=== PATIENT | female | born 1995 | race Caucasian/White ===

== ENCOUNTER 2017-10-01 10:51 | Emergency (ER) | payer BC ==
[2017-10-01 11:15] VITALS: RESP 16; TEMP 98.1
--- NOTE | 2017-10-01 12:04 | EDPHY ---
H & P Stated Complaint: n/v/d today working out devolped back pain Time Seen by Provider: 10/01/17 12:04 HPI/ROS: HPI: This is a 21-year-old female who presents with Chief Complaint: Urinary symptoms Location: Quality: Urinary since Duration: 1 and half weeks Signs and Symptoms: no fever, no nausea, no vomiting, no hematemesis, no blood in stool, no abdominal bloating, no diarrhea, + right lumbar back pain, + urinary symptoms, no vaginal discharge, no indigestion, no chest pain, no shortness of breath Timing: Worsening Severity: Mild Context: Last week and had burning with urination and hesitancy. Took azo for several days and symptoms went away. 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 Patient believes that she has a urinary tract infection. No history of pyelonephritis/kidney stone. Eating and drinking normally. Denies fever/ diarrhea. Currently on menses. Last sexual intercourse in January of 2017. Modifying Factors: Azo Comment: ROS: see HPI Constitutional: No fever, no chills, no weight loss Eyes: No blurred vision Respiratory: No shortness of breath, no cough Cardiovascular: No chest pain, no palpitations Gastrointestinal: No nausea, no vomiting, no diarrhea, no hematemesis, no blood in stool Genitourinary: No dysuria, no blood in urine Extremities: No myalgias, no edema Neurologic: No weakness, no numbness Skin: No rashes, no petechiae Hematologic: No bruising, no bleeding MEDICAL/SURGICAL/SOCIAL HISTORY: Medical history: Generally healthy. Does not take any regular medications. Surgical history: Denies Social history: Student. CONSTITUTIONAL: Extremely well-appearing teenage white female, awake and alert , no obvious distress HEENT: Atraumatic and normocephalic, PERRL, EOMI. Tympanic membranes clear. Oropharynx clear, no exudate and moist pink mucosa. Airway patent. No lymphadenopathy. No meningismus. Cardiovascular: Normal S1/S2, regular rate, regular rhythm, without murmur rub or gallop. PULMONARY/CHEST: Symmetrical and nontender. Clear to auscultation bilaterally. Good air movement. No accessory muscle usage. ABDOMEN: Soft, nondistended, nontender, no rebound, no guarding, no peritoneal signs, no masses or organomegaly. No CVAT. BACK: No midline tenderness, no paraspinous spasm, deep tendon reflexes 2/2, no pain with straight leg raise EXTREMITIES: 2/2 pulses, strength 5/5, no deformities, no clubbing, no cyanosis or edema. NEUROLOGICAL: no focal neuro deficits. GCS 15. SKIN: Warm and dry, no erythema. no rash. Good capillary refill. Source: Patient Exam Limitations: No limitations - Personal History LMP (Females 10-55): Now Current Tetanus/Diphtheria Vaccine: Unsure Tetanus Vaccine Date: < 10 years - Medical/Surgical History Hx Asthma: No Hx Chronic Respiratory Disease: No Hx Diabetes: No Hx Cardiac Disease: No Hx Renal Disease: No Hx Cirrhosis: No Hx Alcoholism: No Hx HIV/AIDS: No Hx Splenectomy or Spleen Trauma: No Other PMH: none reported - Social History Smoking Status: Current some day smoker Constitutional: Initial Vital Signs Temperature (C) 36.7 C 10/01/17 11:12 Heart Rate 60 10/01/17 11:12 Respiratory Rate 16 10/01/17 11:12 Blood Pressure 98/64 L 10/01/17 11:12 O2 Sat (%) 98 10/01/17 11:12 O2 Delivery Mode Room Air Allergies/Adverse Reactions: No Known Allergies Allergy (Unverified 07/03/16 14:50) Home Medications: Medication Instructions Recorded Mylan 10/01/17 Nitrofurantoin Monohyd/M-Cryst 100 mg PO BID #14 capsule 10/01/17 [Macrobid 100 mg Capsule] Medical Decision Making ED Course/Re-evaluation: Urinalysis shows abnormality; but not clear infection; sent for urine culture and start Macrobid Vital signs stable no systemic signs. Abdomen soft and nontender; doubt surgical abdomen. This patient was seen under the supervision of my secondary supervising physician. I evaluated care for this patient independently. Differential Diagnosis: Back pain including but not limited to muscular pain, herniated disc, spine fracture, intra-abdominal causes and urinary tract infection. - Data Points Laboratory Results: 10/01/17 12:03 Urine Color BRIDGET Urine Appearance HAZY Urine pH 8.0 H (5.0-7.5) Ur Specific [place] 1.023 (1.002-1.030) Urine Protein 1+ H (NEGATIVE) Urine Ketones NEGATIVE (NEGATIVE) Urine Blood 3+ H (NEGATIVE) Urine Nitrate NEGATIVE (NEGATIVE) Urine Bilirubin NEGATIVE (NEGATIVE) Urine Urobilinogen NEGATIVE EU EU (0.2-1.0) Ur Leukocyte Esterase NEGATIVE (NEGATIVE) Urine RBC 50-182 /hpf H /hpf (0-3) Urine WBC 5-10 /hpf H /hpf (0-3) Ur Epithelial Cells TRACE /lpf /lpf (NONE-1+) Urine Mucus 4+ /lpf H /lpf (NONE-1+) Urine Glucose NEGATIVE (NEGATIVE) Medications Given: Discontinued Medications Ondansetron HCl (Zofran Odt) 4 mg PO EDNOW ONE Stop: 10/01/17 12:10 Last Admin: 10/01/17 12:15 Dose: 4 mg Departure - Departure Disposition: Home, Routine, Self-Care Clinical Impression: Dysuria Condition: Good Instructions: Urinary Tract Infection in Women (ED) Additional Instructions: Consume a minimum of 8-10 glasses of water or electrolyte fluid replacement drinks that include Gatorade, Powerade, Pedialyte. Eat a bland diet for the next 48 hours and then slowly advance as tolerated. Take all of the Macrobid as directed until complete. Return to the Emergency Room if symptoms do not resolve in the next 48-72 hours , you spike a fever > 102 F, or experience intractable abdominal pain/nausea/ vomiting. Referrals: [facility],. [Clinic] - As per Instructions Prescriptions: Nitrofurantoin Monohyd/M-Cryst [Macrobid 100 mg Capsule] 100 mg PO BID #14 capsule
[2017-10-01] MEDS ORDERED: ONDANSETRON DISINTEGRATING 4 MG TAB PO ONE (12:09)
[2017-10-01 13:03] VITALS: BP 102/57; PULSE 63; O2SAT 97
== END 2017-10-01 13:03 | disposition home or self-care (01) ==
DX: R30.0 Dysuria (principal); F17.200 Nicotine dependence, unspecified, uncomplicated

== ENCOUNTER 2017-10-10 07:52 | Emergency (ER) | payer BC ==
[2017-10-10] MEDS ORDERED: ONDANSETRON 4 MG/2 ML VIAL IVP ONE (08:18)
--- NOTE | 2017-10-10 08:25 | EDPHY ---
H & P Time Seen by Provider: 10/10/17 08:09 HPI/ROS: CHIEF COMPLAINT: Right-sided abdominal pain, vomiting HISTORY OF PRESENT ILLNESS: 21-year-old female presents with right lower quadrant pain and vomiting. She was seen in this emergency department 1 week ago for similar symptoms. Urinalysis revealed red blood cells only, thought secondary to menstruation. She was placed on Macrobid for possible urinary tract infection. The pain resolved, but returned this morning. She was awakened by severe right-sided abdominal pain that radiates to her back. Associated with multiple episodes of vomiting. The pain waxes and wanes and continues to be severe. No prior history of kidney stone or ovarian cyst. Last menstrual period 2 weeks ago and regular. No fever or prior abd surgery. REVIEW OF SYSTEMS: Constitutional: No fever, no chills Eyes: No visual changes ENT: No sore throat Respiratory: No cough, no shortness of breath Cardiac: No chest pain Genitourinary: No hematuria, no dysuria Musculoskeletal: No leg pain or swelling Skin: No rash Neurological: No headache, no weakness Psychiatric: No depression Past Medical/Surgical History: Denies Social History: Student at [employer] Smoking Status: Former smoker Physical Exam: General Appearance: Alert, pleasant, appears in pain Eyes: Pupils equal and round, no conjunctival pallor or injection ENT, Mouth: Mucous membranes moist Neck: Normal inspection Respiratory: Lungs are clear to auscultation Cardiovascular: Regular rate and rhythm Gastrointestinal: Abdomen is soft, right lower quadrant tenderness, no peritoneal signs Neurological: A&O, nonfocal, normal gait Skin: Warm and dry Extremities: Normal inspection Psychiatric: Mood and affect normal Constitutional: Initial Vital Signs Temperature (C) 36.6 C 10/10/17 07:53 Heart Rate 92 10/10/17 07:53 Respiratory Rate 24 H 10/10/17 07:53 Blood Pressure 112/95 H 10/10/17 07:53 O2 Sat (%) 100 10/10/17 07:53 O2 Delivery Mode Room Air Allergies/Adverse Reactions: morphine Allergy (Verified 10/10/17 12:33) Home Medications: Medication Instructions Recorded Mylan 10/01/17 Medical Decision Making - Diagnostics Imaging Results: Abd/pelvic sono: appendicolith present ED Course/Re-evaluation: This patient presents with severe right lower quadrant pain, radiating to the back. Right lower quadrant tenderness on exam. Stat test ordered to rule out ectopic . IV normal saline 1 L, Zofran 4 mg IV ordered. Plan for Toradol 30 mg IV if test is negative. test negative. Toradol 30 mg IV given. Abdominal and pelvic ultrasound ordered to evaluate for hydronephrosis, appendicitis and right ovarian cyst/torsion. Ultrasound reveals appendicolith. d/w Dr. Marcelo, will obtain CT abd/pelvis. 1115: Abdominal pain has resolved. Abdomen is soft and nontender. Ultrasound reveals appendicolith and results discussed with the patient. I doubt that she has appendicitis, given complete resolution of pain, no leukocytosis and similar prior episode. CT abd/pelvis canceled. Dr. Marcelo saw pt, concurs. There is no hydronephrosis; no evidence of ureteral calculus. She has multiple ovarian cysts, without evidence of torsion. No free fluid on ultrasound; no evidence of cyst rupture. Given 2 episodes of pain and quality/severity of pain , I suspect that the pain is secondary to ovarian cysts. However, test results are normal and there is no objective data to support this dx. 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 The patient was informed to return to the ED if pain returns. Suggest CT abd/ pelvis for recurrent pain. Abdominal pain precautions given. Differential Diagnosis: Differential diagnosis includes though it is not limited to ectopic , ovarian cyst, ovarian torsion, PID, UTI, appendicitis. - Data Points Laboratory Results: Laboratory Results 10/10/17 08:15 10/10/17 08:15 Medications Given: Discontinued Medications Ketorolac Tromethamine (Toradol) 30 mg IVP EDNOW ONE Stop: 10/10/17 09:00 Last Admin: 10/10/17 09:02 Dose: 30 mg Lorazepam (Ativan Injection) 0.5 mg IVP EDNOW ONE Stop: 10/10/17 08:28 Last Admin: 10/10/17 08:29 Dose: 0.5 mg Ondansetron HCl (Zofran) 4 mg IVP EDNOW ONE Stop: 10/10/17 08:19 Last Admin: 10/10/17 08:24 Dose: 4 mg Departure - Departure Disposition: Home, Routine, Self-Care Clinical Impression: Abdominal pain Condition: Good Instructions: Acute Abdominal Pain (ED) Additional Instructions: Return for recurrent symptoms or any concerns. Follow-up with her primary care physician for further evaluation. Referrals: [facility] [Other] - As per Instructions Stand Alone Forms: School Excuse, Statement of Treatment
[2017-10-10] MEDS ORDERED: LORazepam 2 MG/ML INJ ONE (08:27)
[2017-10-10] MEDS ORDERED: LORazepam 2 MG/ML INJ IVP ONE (08:27)
[2017-10-10 08:35] LABS: PLATELET COUNT 352 10^3/uL (150-400)
[2017-10-10] MEDS ORDERED: KETOROLAC 15 MG/1 ML SDV IVP ONE (08:59)
[2017-10-10] MEDS ORDERED: KETOROLAC 30 MG/1 ML SDV ONE (09:00)
[2017-10-10 10:11] VITALS: RESP 16; O2SAT 94
[2017-10-10] MEDS ORDERED: IOPAMIDOL (ISOVUE-300) 100 ML BTL ONE (11:18)
[2017-10-10 12:33] VITALS: BP 117/73; PULSE 84; TEMP 98.6
== END 2017-10-10 12:15 | disposition home or self-care (01) ==
DX: R10.31 Right lower quadrant pain (principal); Z87.891 Personal history of nicotine dependence
CPT/HCPCS: 82947-QW; 96374; J1885; J2060; J2405; Q9967